=== PATIENT | female | born 1960 | race Caucasian/White ===

== ENCOUNTER 2022-10-23 12:45 | Emergency (ER) | payer OTHER ==
[~2022-10-23] VITALS: Ht 154.9 cm; Wt 79.0 kg
[2022-10-23] MEDS ORDERED: IBUPROFEN 400MG TABLET PO ONE (15:15)
[2022-10-23] MEDS ORDERED: IBUP-2029 MT (18:58)
[2022-10-23 20:45] VITALS: BP 136/78
== END 2022-10-23 20:48 | disposition home or self-care (01) ==
LOC: ER 13:33
DX: S72.402A Unspecified fracture of lower end of left femur, initial encounter for closed fracture (principal); S83.412A Sprain of medial collateral ligament of left knee, initial encounter; S83.242A Other tear of medial meniscus, current injury, left knee, initial encounter; X58.XXXA Exposure to other specified factors, initial encounter; Y93.89 Activity, other specified; Y92.89 Other specified places as the place of occurrence of the external cause; Y99.8 Other external cause status
CPT/HCPCS: 73562; 73721; 99284; Z7610